=== PATIENT | female | born 1950 ===

== ENCOUNTER 2017-03-20 07:54 | Day surgery (SDC) | payer SELFPAY ==
[2017-03-20] MEDS ORDERED: Lactated Ringer's 500 ML IV ONE (08:22)
[2017-03-20 08:35] VITALS: TEMP 96.8
[2017-03-20] MEDS ORDERED: Midazolam 2 MG/2 ML VIAL ONE (09:16)
[2017-03-20] MEDS ORDERED: Propofol 10 mg/ml Inj (20 ML) ONE (09:16)
[2017-03-20 09:36] VITALS: O2SAT 99
[2017-03-20 09:47] VITALS: BP 100/60; PULSE 61; RESP 16
== END 2017-03-20 10:30 | disposition home or self-care (01) ==
LOC: H.ENDO 07:54
PROVIDERS: ATTEND Internal Medicine Gastroenterology
DX: Z12.11 Encounter for screening for malignant neoplasm of colon (principal); I10 Essential (primary) hypertension; K64.1 Second degree hemorrhoids; K57.30 Diverticulosis of large intestine without perforation or abscess without bleeding

== ENCOUNTER 2018-01-26 21:46 | Emergency (ER) | payer SELFPAY ==
[2018-01-26 22:15] VITALS: RESP 18; O2SAT 99
[2018-01-26] MEDS ORDERED: Naproxen 500 MG TAB PO STA (23:11)
--- NOTE | 2018-01-26 23:23 | ED PDOC ---
Upper Extremity Pain/Injury Time Seen by Provider: 01/26/18 22:19 Chief Complaint (Nursing): Upper Extremity Problem/Injury Chief Complaint (Provider): Shoulder Pain History Per: Patient, Riveter Hand (#[id number]) Onset/Duration Of Symptoms: Days (x4) Current Symptoms Are (Timing): Still Present Quality: Squeezing Severity: Moderate Pain Scale Rating Of: 6 Exacerbating Factor(s): Strenuous Use Of Affected Area, Movement Additional Complaint(s): Patient is a 67 year old female who presents for evaluation of atraumatic left shoulder pain. Patient states she has been experiencing these symptoms for the last 3-4 days and reports the pain worsens with movement and use of the left upper extremity. Patient states the pain is localized to the left shoulder, rated 6/10, and feels like a squeezing sensation. Patient denies any history of falls or previous shoulder injury. She further reports that she works as a data warehouse specialist and often does repetitive movements of the arm. Patient has been managing current symptoms with Motrin with minimal relief, last dose at 4pm today. Otherwise patient denies: fever, SOB, chest pain, cough, diaphoresis, jaw pain, palpitations, headache, dizziness, weakness/numbness, slurred speech, facial droop, visual changes, N/V/D, abdominal pain, orthopnea. Of note, patient with elevated BP reading upon arrival in ED. Patient reports she is compliant with her HTN medication (Norvasc) at home and took her dose today. Patient states she gets nervous in the hospital and it usually elevates when she is evaluated. PMD: Daron Past Medical History Reviewed: Historical Data, Nursing Documentation, Vital Signs Vital Signs: Last Vital Signs Temp 98.0 F 01/26/18 22:12 Pulse 92 H 01/26/18 22:12 Resp 18 01/26/18 22:12 BP 198/100 H 01/26/18 22:12 Pulse Ox 99 01/26/18 22:12 - Medical History PMH: HTN Denies: Chronic Kidney Disease - Surgical History Surgical History: No Surg Hx - Family History Family History: States: Unknown Family Hx - Social History Current smoker - smoking cessation education provided: No Alcohol: None Drugs: Denies - Home Medications Home Medications: Ambulatory Orders Medication Instructions Recorded amLODIPine [Norvasc] 5 mg PO DAILY 03/20/17 Meloxicam [Mobic] 15 mg PO DAILY #14 tab 01/27/18 Methocarbamol [Robaxin] 500 mg PO BID PRN #12 tab 01/27/18 - Allergies Allergies/Adverse Reactions: Allergies Allergy/AdvReac Type Severity Reaction Status Date / Time No Known Allergies Allergy Verified 07/17/16 17:58 Review of Systems ROS Statement: Except As Marked, All Systems Reviewed And Found Negative Musculoskeletal: Positive for: Shoulder Pain Physical Exam - Reviewed Nursing Documentation Reviewed: Yes Vital Signs Reviewed: Yes - Physical Exam Appears: Positive for: Well, Non-toxic, No Acute Distress Head Exam: Positive for: NORMOCEPHALIC Skin: Positive for: Normal Color, Warm, Dry ENT: Positive for: Pharynx Is (clear, uvula midline. ), Other (Mucus membranes moist. Airway patent, (-) stridor.) Neck: Positive for: Painless ROM, Supple Cardiovascular/Chest: Positive for: Regular Rate, Rhythm Respiratory: Positive for: Normal Breath Sounds. Negative for: Decreased Breath Sounds, Accessory Muscle Use, Respiratory Distress Gastrointestinal/Abdominal: Positive for: Soft. Negative for: Tenderness, Distended, Guarding Back: Negative for: L CVA Tenderness, R CVA Tenderness, Vertebral Tenderness Extremity: Positive for: Normal ROM (of bilateral upper extremities), Tenderness (to posterior left shoulder and parathoracic region (+) muscle spasm) , Capillary Refill (intact), Other ((-) deformity (-) clavicular tenderness (-) AC joint tenderness ). Negative for: Deformity, Swelling (erythema or overlying skin changes) Neurologic/Psych: Positive for: Alert, Oriented (x3), Gait (steady in ED). Negative for: Motor/Sensory Deficits, Aphasia, Facial Droop - ECG O2 Sat by Pulse Oximetry: 99 (RA) Pulse Ox Interpretation: Normal Medical Decision Making Medical Decision Making: Clinical Impression: Acute shoulder pain, likely muscle spasm; elevated BP Plan: -Valium PO -Naproxen PO -EKG -Re-evaluation -Repeat vitals 2355 EKG: NSR @ 69bpm (-) ST elevations, QTc 430. Clonidine 0.1mg ordered. 0100 Repeat HR: 80 Repeat BP: 145/88 On re-evaluation, patient reports improvement of symptoms. On exam, patient remains AAOx3, in no acute distress. On exam, neck is supple, lungs CTA, cardiac RRR, abdomen is soft and non-tender, neuro exam shows no focal findings. Patient continues to deny any complaints relevant to elevated BP, including but not limited to, chest pain, SOB, dizziness, headache, visual changes. Close follow up with PMD stressed to patient regarding BP management. Diagnostic results d/w the patient in great detail. Dx of acute shoulder pain, muscle spasm of shoulder, elevated BP reading d/w the patient. Based on history, exam and diagnostic results plan will be for discharge and outpatient follow up. Advised to follow up with primary care physician in 1-2 days without fail. Advised to take medication as prescribed. Return to the emergency room at any time for any new or worsening symptoms. Patient states she fully agrees with and understands discharge instructions. States that she agrees with the plan and disposition. Verbalized and repeated discharge instructions and plan. I have given the patient opportunity to ask any additional questions. Disposition - Clinical Impression Clinical Impression: Shoulder pain, Muscle spasm of left shoulder, Elevated blood pressure reading - Patient ED Disposition Is Patient to be Admitted: No Counseled Patient/Family Regarding: Studies Performed, Diagnosis, Need For Followup, Rx Given - Disposition Referrals: Jordon Neri MD [Staff Provider] - Disposition: Routine/Home Disposition Time: 00:58 Condition: FAIR Additional Instructions: FOLLOW UP WITH PMD IN 1-2 DAYS WITHOUT FAIL. RETURN TO ED WITH ANY NEW OR WORSENING SYMPTOMS. Prescriptions: Meloxicam [Mobic] 15 mg PO DAILY #14 tab Methocarbamol [Robaxin] 500 mg PO BID PRN #12 tab PRN Reason: Muscle Spasm Instructions: High Blood Pressure in Adults, High Blood Pressure (DC), Muscle Spasms (DC), Shoulder Pain (DC), Hypertension (ED) Forms: [employer] (Eth[place]ian) Print Language: MALDIVIAN - POA Present On Arrival: None
[2018-01-26] MEDS ORDERED: Naproxen 500 MG TAB PO ONE (23:43)
[2018-01-27 01:00] VITALS: BP 145/80; PULSE 80; TEMP 98
--- NOTE | 2018-01-28 14:26 | CARD ---
APPROVED REPORT EKG Measurement Heart [id number] <Conclusion> Normal sinus rhythm with sinus arrhythmia Normal ECG
== END 2018-01-27 01:00 | disposition home or self-care (01) ==
LOC: H.ER 21:46
DX: M25.512 Pain in left shoulder (principal); I10 Essential (primary) hypertension; M62.838 Other muscle spasm